=== PATIENT | female | born 1990 | race African-American/Black ===

== ENCOUNTER 2023-01-28 15:49 | Emergency (ER) | payer SELFPAY ==
[~2023-01-28] VITALS: Ht 167.6 cm; Wt 119.7 kg
[2023-01-28 15:59] VITALS: BP 141/92
--- NOTE | 2023-01-28 17:32 | NUR ---
32YO FEMALE PT C/O HEAVY CHEST PAIN X3DAYS. REPORTS INTERMITTENT EPISODES W/ PAIN AT MOST WHEN LAYING DOWN. STATES PREVIOUS S/S ABOUT 1 YEAR AGO. DENIES RADIATION, N/V/D, SOB OR TAKING MEDICATION. PT AAOX4, ON [employer]. HX:DENIES NKA
--- NOTE | 2023-01-28 17:40 | NUR ---
MD CONNOR AT BEDSIDE FOR EVALUATION
[2023-01-28] MEDS ORDERED: IBUP-2213 PO (17:55)
[2023-01-28 17:57] VITALS: BP 130/78
--- NOTE | 2023-01-28 18:02 | NUR ---
Patient discharged with v/s stable. Written and verbal after care instructions FOR NONSPECIFIC CHEST PAIN given and explained. Patient alert, oriented and verbalized understanding of instructions. Ambulatory with steady gait. All questions addressed prior to discharge. ID band removed. Patient advised to follow up with PMD. Rx of IBUPROFEN given. Opportunity to ask questions provided and answered.
--- NOTE | 2023-01-28 18:04 | NUR ---
The patient's care was reviewed and supervised by Darlene Nelson RN.
== END 2023-01-28 18:02 | disposition home or self-care (01) ==
LOC: MED 15:49
DX: R07.9 Chest pain, unspecified (principal)
CPT/HCPCS: 71045; 81025; 93005; 99283